=== PATIENT | female | born 1985 | race African-American/Black ===

== ENCOUNTER 2016-09-28 02:16 | Emergency (ER) | payer OTHER ==
[~2016-09-28] VITALS: Ht 152.4 cm; Wt 86.2 kg
[2016-09-28 02:51] LABS: PLATELET COUNT 220 K/uL (152-353)
[2016-09-28 02:52] LABS: POTASSIUM 3.7 mmol/L (3.6-5.2); SODIUM 134 mmol/L (136-145)
[2016-09-28 03:50] VITALS: TEMP 98.1
[2016-09-28 06:54] VITALS: BP 138/97
== END 2016-09-28 06:57 | disposition home or self-care (01) ==
LOC: ED 02:16
DX: A08.4 Viral intestinal infection, unspecified (principal); R10.9 Unspecified abdominal pain
CPT/HCPCS: 36415; 80053; 81000; 81025; 82150; 83690; 85027; 96374; 96375; 99284; J1885; J2405; Q9963